=== PATIENT | female | born 1985 | race Caucasian/White ===

== ENCOUNTER 2021-09-23 23:03 | Emergency (ER) | payer OTHER, SELFPAY ==
--- NOTE | ~2021-09-23 | XR_ITS ---
XR knee LT 3V DATE: 09/23/2021 23:43 INDICATION: Fall. Left knee pain. TECHNIQUE: 4 views COMPARISON: None FINDINGS: There is evidence of prominent suprapatellar knee joint effusion. There is tricompartment osteoarthritis of moderate degree. Valgus deformity. Osteopenia. No fracture, dislocation, periosteal reaction or bone destruction. No radiopaque intra-articular loos e body or chondrocalcinosis. IMPRESSION: Prominent suprapatellar knee joint effusion Tricompartment osteoarthritis Osteopenia Reviewed, dictated and finalized at location A.
[2021-09-23 23:21] VITALS: BP 134/43; PULSE 83; RESP 18; TEMP 36.4; O2SAT 98
--- NOTE | 2021-09-24 00:36 | ED.LOWEXIN ---
HPI - Extremity Injury (Lower) General Chief Complaint: Extremity Injury, Lower Stated Complaint: fall, left knee injnury Time Seen by Provider: 09/23/21 23:52 Source: patient Mode of arrival: ambulatory History of Present Illness HPI Narrative: 36-year-old female presents today with complaints of left knee pain that started around 10:00 this evening. Patient states she got off of work after a 12-hour shift and went home was walking stepped wrong rolled her ankle and heard a pop in her knee. Patient then with knee pain. Swelling now noted. Patient states it is hard to walk on. But patient is able to put some weight on the left leg. Patient denies any alleviating or aggravating factors. Patient states she took some ibuprofen prior to arrival. Related Data Allergies Allergy/AdvReac Type Severity Reaction Status Date / Time No Known Allergies Allergy Unverified 01/07/19 06:25 Review of Systems Review of Systems: CONSTITUTIONAL: Denies fever, chills, or sweats. EYES: Denies visual changes, redness, or discharge. ENT: Denies rhinorrhea, congestion, sore throat, or otalgia. CARDIOVASCULAR: Denies chest pain, palpitations, or edema. RESPIRATORY: Denies cough or dyspnea. GASTROINTESTINAL: Denies abdominal pain, nausea, vomiting, or diarrhea. GENITOURINARY: Denies dysuria or hematuria. SKIN: Denies rash or itching. MUSCULOSKELETAL: Left knee pain and swelling. Denies back pain, joint pain, or myalgia. NEUROLOGIC: Denies headache, numbness, dizziness, or weakness. PSYCHIATRIC: Denies anxiety or depression. Exam Narrative: GENERAL: Well-appearing, well-nourished, and in no acute distress. HEAD: Normocephalic, atraumatic. EYES: PERRLA and EOMI. ENT: Nares clear, no rhinorrhea or epistaxis. Mucous membranes moist. Oropharynx without tonsillar hypertrophy exudate or other lesions. Bilateral TMs pearly wilson nonbulging NECK: Supple. No adenopathy or masses. No carotid bruits or JVD CHEST: Clear to auscultation. No respiratory distress. No wheezes rales or rhonchi HEART: Regular rate and rhythm. No murmur heard. Normal peripheral pulses. ABDOMEN: Soft, nontender, nondistended, normal active bowel sounds. EXTREMITIES: Left knee with swelling, tenderness to lateral knee, full range of motion, no laxity noted. Normal range of motion. No edema. SKIN: Warm, dry, no rash. NEURO: No focal deficits. Alert and oriented x3. PSYCH: Normal mood and affect. Course Course Emergency Course: Reviewed x-ray results with patient. Patient aware no obvious fracture at this time. Patient also aware radiology will review x-ray in the morning. Patient given Marcial wrap, crutches, instructed to follow-up with either primary or Ortho as soon as possible. Patient in agreement with plan of care Vital Signs Vital signs: Vital Signs Temperature 36.4 C 09/23/21 23:21 Pulse Rate 83 09/23/21 23:21 Respiratory Rate 18 09/23/21 23:21 Blood Pressure 134/43 L 09/23/21 23:21 Pulse Oximetry 98 09/23/21 23:21 Temperature 36.4 C 09/23/21 23:21 Pulse Rate 83 09/23/21 23:21 Respiratory Rate 18 09/23/21 23:21 Blood Pressure 134/43 L 09/23/21 23:21 Pulse Oximetry 98 09/23/21 23:21 MDM - Extremity Injury (Lower) MDM Narrative Medical decision making narrative: HPI as noted. X-ray without process at this time. X-ray to be reviewed by radiology in the morning. Suspect left knee sprain but referred to Ortho for possible work-up if needed. Patient to use ibuprofen as needed for pain. Weightbearing as tolerated crutches provided, Marcial wrap to left knee also completed. Discharge Plan Discharge Clinical Impression: Acute pain of left knee Patient Disposition: Home, Self-Care Condition: Stable Instructions: Antibiotic Form Additional Instructions: Marcial wrap for comfort to left knee. Use ibuprofen/tylenol as needed for pain. Follow up with ortho or primary for further managment. Prescriptions: New naproxen 500 mg table
[2021-09-24] MEDS: HYDROcodone/acetaminophen (*CRX) 5-325 MG TABLET 1 TAB PO (00:56)
== END 2021-09-24 00:59 | disposition home or self-care (01) ==
PROVIDERS: Emergency Provider Nurse Practitioner Family
DX: M25.562 Pain in left knee (principal); M17.12 Unilateral primary osteoarthritis, left knee; M85.88 Other specified disorders of bone density and structure, other site
CPT/HCPCS: 73562; 99283; A9270